=== PATIENT | male | born 1960 | race Caucasian/White ===

== ENCOUNTER 2017-12-21 21:07 | Emergency (ER) | payer MEDICARE, OTHER ==
[2017-12-21] MEDS ORDERED: Ketorolac 60 MG/2 ML SDV IM ONE (21:37)
[2017-12-21] MEDS ORDERED: Sodium Phosphate,Monobasic/Sodium Phosphate,Dibasic Enema 133 ML Bottle RECTAL ONE (23:20)
[2017-12-22] MEDS ORDERED: Sodium Chloride 0.9% 1,000 ML IV ONE (00:10)
[2017-12-22] MEDS ORDERED: Iopamidol 755 MG/ML 150 ML Bottle IV ONE (00:42)
[2017-12-22] MEDS ORDERED: Diatrizoate Meglumine/Diatrizoate Sodium 37% 30 ML Bottle PO SCH (00:45)
--- NOTE | 2017-12-22 02:57 | EDM.PDOC ---
ED HPI GENERAL MEDICAL PROBLEM - General Chief Complaint: Abdominal Pain Stated Complaint: STOMACH PAIN Time Seen by Provider: 12/21/17 21:10 Source of Information: Reports: Patient, Family History Limitations: Reports: No Limitations - History of Present Illness INITIAL COMMENTS - FREE TEXT/NARRATIVE: 57 y.o.w.m with a h/o CAD came with his family to the ed due to gen abd. pain, did not pass stool for 2 days. no N/V. No F/C no other acute medical issues. No trauma. BP 175/85 Pulse 78 RR 18 Temp 36.8 Pulse ox 96% on RA Onset Date: 12/19/17 Onset Time: 10:00 Duration: Day(s):, Intermittent Location: Reports: Abdomen Quality: Reports: Burning, Dull, Same as Previous Episode Severity: Moderate Improves with: Reports: Medication Worsens with: Reports: Movement Context: Reports: Other (abd. pain) - Related Data Allergies Allergy/AdvReac Type Severity Reaction Status Date / Time Penicillins Allergy Anaphylactic Verified 09/01/14 10:38 Shock Home Meds: Home Meds Acetaminophen/oxyCODONE [Percocet 325-5 MG] 1 tab PO Q6HR PRN 09/01/14 [History] Lisinopril 10 mg PO DAILY 09/01/14 [History] atorvaSTATin [Lipitor] 40 mg PO BEDTIME 09/01/14 [History] oxyCODONE 5 mg PO Q6HR PRN 09/01/14 [History] ALPRAZolam [Alprazolam] 0.5 - 1 tab PO Q8H PRN 12/21/17 [History] Metoprolol Succinate [Toprol XL] 25 mg PO DAILY 12/21/17 [History] Montelukast [Singulair] 10 mg PO BEDTIME 12/21/17 [History] Past Medical History Cardiovascular History: Reports: High Cholesterol, Hypertension Respiratory History: Reports: Asthma, COPD Musculoskeletal History: Reports: Back Pain, Chronic Psychiatric History: Reports: Anxiety Endocrine/Metabolic History: Reports: Obesity/BMI 30+ - Past Surgical History Cardiovascular Surgical History: Reports: Other (See Below) Other Cardiovascular Surgeries/Procedures: History of open heart surgery. GI Surgical History: Reports: Appendectomy Male Surgical History: Reports: Other (See Below) Other Male Surgeries/Procedures: Urethral reconstruction. Musculoskeletal Surgical History: Reports: Other (See Below) Other Musculoskeletal Surgeries/Procedures:: History of back surgery, has been on disability for 3 years. Social & Family History - Tobacco Use Smoking Status *Q: Former Smoker Years of Tobacco use: 35 Used Tobacco, but Quit: No Month/Year Tobacco Last Used: 0 Second Hand Smoke Exposure: No - Alcohol Use Days Per Week of Alcohol Use: 1 Number of Drinks Per Day: 2 Total Drinks Per Week: 2 - Recreational Drug Use Recreational Drug Use: No ED ROS GENERAL - Review of Systems Review Of Systems: See Below Constitutional: Reports: No Symptoms HEENT: Reports: No Symptoms Respiratory: Reports: No Symptoms Cardiovascular: Reports: No Symptoms Endocrine: Reports: No Symptoms GI/Abdominal: Reports: Abdominal Pain, Constipation, Decreased Appetite : Reports: No Symptoms Musculoskeletal: Reports: No Symptoms Skin: Reports: No Symptoms Neurological: Reports: No Symptoms Psychiatric: Reports: No Symptoms Hematologic/Lymphatic: Reports: No Symptoms Immunologic: Reports: No Symptoms ED EXAM, GI/ABD - Physical Exam Exam: See Below Exam Limited By: No Limitations General Appearance: Alert, WD/WN, Mild Distress, Moderate Distress Eyes: Bilateral: Normal Appearance Ears: Normal External Exam Nose: Normal Inspection Throat/Mouth: Normal Inspection Head: Atraumatic, Normocephalic Neck: Normal Inspection, Supple, Non-Tender, Full Range of Motion Respiratory/Chest: No Respiratory Distress, Lungs Clear, Normal Breath Sounds, No Accessory Muscle Use, Chest Non-Tender Cardiovascular: Normal Peripheral Pulses, Regular Rate, Rhythm, No Edema, No Gallop, No Rub GI/Abdominal Exam: Normal Bowel Sounds, No Mass, Pelvis Stable, Distended, Tender (generalized) (Male) Exam: No Hernia Rectal (Males) Exam: Normal Exam, Normal Rectal Tone Back Exam: Normal Inspection, Full Range of Motion Extremities: Normal Inspection, Normal Range of Motion, Non-Tender, No Pedal Edema, Normal Capillary Refill Neurological: Alert, Oriented, CN II-XII Intact, Normal Cognition, Normal Gait ( with cane) Psychiatric: Normal Affect, Normal Mood Skin Exam: Warm, Dry, Intact, Normal Color, No Rash Lymphatic: No Adenopathy Course - Vital Signs Text/Narrative:: 57 y.o.w.m with a h/o CAD came with his family to the ed due to gen abd. pain, did not pass stool for 2 days. no N/V. No F/C no other acute medical issues. No trauma. BP 175/85 Pulse 78 RR 18 Temp 36.8 Pulse ox 96% on RA PE: Morbid obes w m with a H/O CAD came to the ed with abd. pain, generalized, not able to pass stool for 2 days. Rectal exam was neg. not stool in rectum Imaging: abd falt and upright: Constioation, CT abd/pelvis: Chlelithiasis, Pancreatic head edema DDx acute pancreatistis (Amylase was nl) Proceduere: Fleets enema: Pt was not able to pass stool labs; Amylase 27 WBC 12.5 CBC, BMP wnl Impression: Constipation, Cholelithiais Tx: Toradol initially, NS Reexam: Pt subsided, pt was ambulating fine Plan: D/C with instruction Last Recorded V/S: Last Vital Signs Temp 36.6 C 12/21/17 21:10 Pulse 67 12/21/17 21:10 Resp 16 12/21/17 21:10 BP 170/85 H 12/21/17 21:10 Pulse Ox 98 12/21/17 21:10 - Orders/Labs/Meds Orders: Active Orders 24 hr Category Date Time Status Abdomen 2V AP Flat Upright [CR] Stat Exams 12/21/17 21:37 Taken Abdomen Pelvis w Cont [CT] Stat Exams 12/22/17 00:25 Taken AMYLASE [CHEM] Stat Lab 12/22/17 02:36 Ordered UA W/MICROSCOPIC [URIN] Stat Lab 12/22/17 02:01 Ordered Diatrizoate Irma/Diatrizoate Na [Gastrografin 37%] Med 12/22/17 00:45 Active 30 ml PO . DIRECTED Medication Orders Diatrizoate Meglum/Diatrizoate Sod (Gastrografin 37%) 30 ml PO . DIRECTED LILIYA Last Admin: 12/22/17 01:51 Dose: 30 ml Labs: Laboratory Tests 12/21/17 12/21/17 12/21/17 Range/Units 21:45 21:45 21:45 WBC 12.4 H (4.5-12.0) X10-3/uL RBC 5.13 (4.30-5.75) x10(6)uL Hgb 15.2 (11.5-15.5) g/dL Hct 44.3 (30.0-51.3) % MCV 86.4 (80-96) fL MCH 29.7 (27.7-33.6) pg MCHC 34.4 (32.2-35.4) g/dL RDW 13.0 (11.5-15.5) % Plt Count 260 (125-369) X10(3)uL MPV 9.1 (7.4-10.4) fL Neut % (Auto) 84.3 H (46-82) % Lymph % (Auto) 7.3 L (13-37) % Slope % (Auto) 7.0 (4-12) % Eos % (Auto) 0 L (1.0-5.0) % Baso % (Auto) 1 (0-2) % Neut # (Auto) 10.5 H (1.6-8.3) # Lymph # (Auto) 0.9 (0.6-5.0) # Slope # (Auto) 0.9 (0.0-1.3) # Eos # (Auto) 0.0 (0.0-0.8) # Baso # (Auto) 0.1 (0.0-0.2) # Sodium 137 (135-145) mmol/L Potassium 3.7 (3.5-5.3) mmol/L Chloride 101 (100-110) mmol/L Carbon Dioxide 25 (21-32) mmol/L BUN 6 L (7-18) mg/dL Creatinine 0.9 (0.70-1.30) mg/dL Est Cr Clr Drug Dosing TNP Estimated GFR (MDRD) > 60 (>60) BUN/Creatinine Ratio 6.7 L (9-20) Glucose 138 H (80-116) mg/dL Lactic Acid (0.4-2.2) mmol/L Calcium 8.8 (8.6-10.2) mg/dL Total Bilirubin 1.3 (0.1-1.3) mg/dL Direct Bilirubin 0.26 H (0.10-0.20) mg/dL AST 14 (5-25) IU/L ALT 27 (12-36) U/L Alkaline Phosphatase 116 H (56-112) IU/L Troponin I < 0.017 L (<0.017-0.056) ng/mL Total Protein 7.2 (6.0-8.0) g/dL Albumin 3.3 L (3.5-5.2) g/dL Amylase 27 (25-115) U/L Urine Color (YELLOW) Urine Appearance (CLEAR) Urine pH (5.0-6.5) Ur Specific [place] (1.010-1.025) Urine Protein (NEGATIVE) mg/dL Urine Glucose (UA) (NEGATIVE) mg/dL Urine Ketones (NEGATIVE) mg/dL Urine Occult Blood (NEGATIVE) Urine Nitrite (NEGATIVE) Urine Bilirubin (NEGATIVE) Urine Urobilinogen (NEGATIVE) mg/dL Ur Leukocyte Esterase (NEGATIVE) Urine RBC (0) Urine WBC (0) Ur Squamous Epith Cells (NS,R,O) Urine Bacteria (NS) 12/22/17 12/22/17 Range/Units 00:44 02:01 WBC (4.5-12.0) X10-3/uL RBC (4.30-5.75) x10(6)uL Hgb (11.5-15.5) g/dL Hct (30.0-51.3) % MCV (80-96) fL MCH (27.7-33.6) pg MCHC (32.2-35.4) g/dL RDW (11.5-15.5) % Plt Count (125-369) X10(3)uL MPV (7.4-10.4) fL Neut % (Auto) (46-82) % Lymph % (Auto) (13-37) % Slope % (Auto) (4-12) % Eos % (Auto) (1.0-5.0) % Baso % (Auto) (0-2) % Neut # (Auto) (1.6-8.3) # Lymph # (Auto) (0.6-5.0) # Slope # (Auto) (0.0-1.3) # Eos # (Auto) (0.0-0.8) # Baso # (Auto) (0.0-0.2) # Sodium (135-145) mmol/L Potassium (3.5-5.3) mmol/L Chloride (100-110) mmol/L Carbon Dioxide (21-32) mmol/L BUN (7-18) mg/dL Creatinine (0.70-1.30) mg/dL Est Cr Clr Drug Dosing Estimated GFR (MDRD) (>60) BUN/Creatinine Ratio (9-20) Glucose (80-116) mg/dL Lactic Acid 1.1 (0.4-2.2) mmol/L Calcium (8.6-10.2) mg/dL Total Bilirubin (0.1-1.3) mg/dL Direct Bilirubin (0.10-0.20) mg/dL AST (5-25) IU/L ALT (12-36) U/L Alkaline Phosphatase (56-112) IU/L Troponin I (<0.017-0.056) ng/mL Total Protein (6.0-8.0) g/dL Albumin (3.5-5.2) g/dL Amylase (25-115) U/L Urine Color Yellow (YELLOW) Urine Appearance Slightly cloudy (CLEAR) Urine pH 7.0 H (5.0-6.5) Ur Specific [place] 1.010 (1.010-1.025) Urine Protein Negative (NEGATIVE) mg/dL Urine Glucose (UA) Normal (NEGATIVE) mg/dL Urine Ketones 15 H (NEGATIVE) mg/dL Urine Occult Blood Negative (NEGATIVE) Urine Nitrite Negative (NEGATIVE) Urine Bilirubin Negative (NEGATIVE) Urine Urobilinogen Normal (NEGATIVE) mg/dL Ur Leukocyte Esterase Negative (NEGATIVE) Urine RBC 0-5 (0) Urine WBC 0-5 (0) Ur Squamous Epith Cells Occasional (NS,R,O) Urine Bacteria Few H (NS) Meds: Medications Generic Name Dose Route Start Last Admin Trade Name Freq PRN Reason Stop Dose Admin Diatrizoate Meglum/Diatrizoate Sod 30 ml 12/22/17 00:45 12/22/17 01:51 Gastrografin 37% PO 30 ml . DIRECTED LILIYA Administration Discontinued Medications Generic Name Dose Route Start Last Admin Trade Name Freq PRN Reason Stop Dose Admin Sodium Chloride 1,000 mls @ 999 mls/hr 12/22/17 00:10 12/22/17 00:12 Normal Saline IV 12/22/17 01:10 999 mls/hr .BOLUS ONE Administration Iopamidol 150 ml 12/22/17 00:42 12/22/17 01:51 Isovue-370 (76%) IV 12/22/17 00:43 128 ml ONETIME ONE Administration Ketorolac Tromethamine 60 mg 12/21/17 21:37 12/21/17 23:29 Toradol IM 12/21/17 21:38 60 mg ONETIME ONE Administration Sodium Biphosphate/Sodium Phosphate 133 ml 12/21/17 23:20 12/21/17 23:27 Fleet Enema RECTAL 12/21/17 23:21 1 bottle ONETIME ONE Administration Departure - Departure Time of Disposition: 02:54 Disposition: Home, Self-Care 01 Condition: Good Clinical Impression: Dehydration, Cholelithiases Constipation Qualifiers: Constipation type: slow transit constipation Qualified Code(s): K59.01 - Slow transit constipation - Discharge Information Referrals: Christina Barrera [employer] [Primary Care Provider] - Forms: ED Department Discharge Additional Instructions: Please take laxatives daily, please f/u with your PMD, please came back if your symptoms get worse acutely - My Orders Last 24 Hours: My Active Orders 12/21/17 21:37 Abdomen 2V AP Flat Upright [CR] Stat 12/22/17 00:25 Abdomen Pelvis w Cont [CT] Stat 12/22/17 00:45 Diatrizoate Irma/Diatrizoate Na [Gastrografin 37%] 30 ml PO . DIRECTED 12/22/17 02:01 UA W/MICROSCOPIC [URIN] Stat 12/22/17 02:36 AMYLASE [CHEM] Stat - Assessment/Plan Last 24 Hours: My Active Orders 12/21/17 21:37 Abdomen 2V AP Flat Upright [CR] Stat 12/22/17 00:25 Abdomen Pelvis w Cont [CT] Stat 12/22/17 00:45 Diatrizoate Irma/Diatrizoate Na [Gastrografin 37%] 30 ml PO . DIRECTED 12/22/17 02:01 UA W/MICROSCOPIC [URIN] Stat 12/22/17 02:36 AMYLASE [CHEM] Stat
[2017-12-22 09:06] VITALS: BP 179/91
== END 2017-12-22 03:20 | disposition home or self-care (01) ==
LOC: FB.ED 21:07
DX: K59.01 Slow transit constipation (principal); K80.20 Calculus of gallbladder without cholecystitis without obstruction; E86.0 Dehydration; K85.90 Acute pancreatitis without necrosis or infection, unspecified; I10 Essential (primary) hypertension; E78.00 Pure hypercholesterolemia, unspecified; J44.9 Chronic obstructive pulmonary disease, unspecified; E66.9 Obesity, unspecified; Z87.891 Personal history of nicotine dependence; Z88.0 Allergy status to penicillin; Z79.899 Other long term (current) drug therapy
CPT/HCPCS: 36415; 74019; 74177; 80048; 80076; 81001; 82150; 83605; 84484; 85025; 96360; 96372; 99284; J1885; J7040; Q9963; Q9967

== ENCOUNTER 2022-11-30 07:06 | Emergency (ER) | payer MEDICARE ==
[2022-11-30] MEDS ORDERED: Ketorolac 30 MG/ML SDV IVPUSH ONE (07:30)
[2022-11-30 07:54] LABS: ESTIMATED GFR 95 mL/min (>60)
[2022-11-30] MEDS ORDERED: Labetalol 20 MG/4 ML Syringe IVPUSH ONE (07:56)
[2022-11-30] MEDS ORDERED: Magnesium Hydroxide 400 MG/5 ML Susp 30 ML Cup PO ONE (08:15)
[2022-11-30] MEDS ORDERED: Ondansetron 4 MG/2 ML SDV IVPUSH ONE (08:19)
[2022-11-30] MEDS ORDERED: Sodium Chloride 0.9% 1,000 ML IV ONE ×2 (08:19→09:50)
[2022-11-30] MEDS ORDERED: Lactulose Soln 10 GM/15 ML 30 ML UD Cup PO ONE (09:49)
[2022-11-30] MEDS ORDERED: Polyethylene Glycol 3350 Powder 17 GM Packet PO ONE (09:49)
[2022-11-30] MEDS ORDERED: Lactulose Soln 10 GM/15 ML 15 ML UD Cup PO ONE (10:11)
[2022-11-30] MEDS ORDERED: Bisacodyl 10 MG Supp RECTAL ONE (12:15)
[2022-11-30] MEDS ORDERED: Sodium Phosphate,Monobasic/Sodium Phosphate,Dibasic Enema 133 ML Bottle RECTAL ONE (13:20)
[2022-11-30] MEDS ORDERED: Mineral Oil 133 ML BOTTLE RECTAL ONE (13:37)
[2022-11-30] MEDS ORDERED: Polyethylene Glycol/Electrolytes 4,000 ML Bottle PO ONE (13:51)
[2022-11-30] MEDS ORDERED: Ketorolac 30 MG/ML SDV IM ONE (13:54)
[2022-11-30] MEDS ORDERED: Ciprofloxacin in D5W 400 MG in Premix Bag 1 BAG IV ONE ×2 (13:57)
[2022-11-30] MEDS ORDERED: Iopamidol 755 Mg/ML 100 ML Bottle IV ONE (14:54)
[2022-11-30 15:53] VITALS: BP 167/88; PULSE 55
== END 2022-11-30 17:30 | disposition home or self-care (01) ==
LOC: FB.ED 07:06
DX: K57.92 Diverticulitis of intestine, part unspecified, without perforation or abscess without bleeding (principal); K59.01 Slow transit constipation; G89.29 Other chronic pain; M54.9 Dorsalgia, unspecified; E78.00 Pure hypercholesterolemia, unspecified; I10 Essential (primary) hypertension; E66.9 Obesity, unspecified; J44.9 Chronic obstructive pulmonary disease, unspecified; Z88.0 Allergy status to penicillin; Z79.899 Other long term (current) drug therapy
CPT/HCPCS: 74018; 74177; 80053; 81001; 83605; 83735; 85025; 86140; 96361; 96365; 96372; 96375; 99284-25; A9270-GY; J0744; J1885; J2405; J3490; J7030; Q9967